=== PATIENT | female | born 1975 | race Caucasian/White ===

== ENCOUNTER 2017-09-24 07:57 | Outpatient (RCR) | payer BC | END 2017-10-14 | disposition home or self-care (01) | LOC: ONC 07:57 | PROVIDERS: ATTEND Radiology Radiation Oncology | DX: Z51.0 Encounter for antineoplastic radiation therapy (principal); D05.82 Other specified type of carcinoma in situ of left breast | CPT/HCPCS: 77290; 77295; 77300; 77334; 77336; 77385; 77417; 99214 ==

== ENCOUNTER 2017-11-05 15:57 | Outpatient (RCR) | payer BC | END 2018-02-03 | disposition home or self-care (01) | LOC: ONC 15:57 | PROVIDERS: ATTEND Radiology Radiation Oncology | DX: D05.82 Other specified type of carcinoma in situ of left breast (principal) | CPT/HCPCS: 99213 ==